=== PATIENT | female | born 1995 | race Caucasian/White ===

== ENCOUNTER 2018-07-11 14:35 | Emergency (ER) | payer BC ==
[~2018-07-11] VITALS: Ht 160 cm; Wt 44.5 kg
[2018-07-11 14:42] VITALS: Ht 160 cm; Wt 44.5 kg
[2018-07-11] MEDS ORDERED: ELAVIL25 MG PO (14:44)
[2018-07-11 15:19] LABS: BASOPHILS 0.3 % (0-2); EOSINOPHILS 0.6 % (0-7); HEMATOCRIT 41.5 % (36.0-48.0); HEMOGLOBIN 13.9 g/dL (12-16); IMMATURE GRANULOCYTES 0.2 % (0-5); LYMPHOCYTES 12.3 % (15-50); MCH 29.1 pg (26.0-34.0); MCHC 33.5 g/dL (31.0-37.0); MCV 86.8 fL (80.0-100.0); MEAN PLATELET VOLUME 10.5 fL (7.4-10.4); MONOCYTES 4.5 % (2-11); NEUTROPHILS 82.1 % (40-80); PLATELET COUNT 330 10x3/uL (130-400); RBC 4.78 10x6/uL (4.00-5.40); RDW 12.9 % (11.5-14.5); WBC 11.1 10x3/uL (4.8-10.8)
[2018-07-11 15:44] LABS: ALKALINE PHOSPHATASE 47 U/L (46-116); ALT (SGPT) 18 U/L (10-68); AMYLASE - SERUM 67 U/L (25-115); BILIRUBIN - TOTAL 0.48 mg/dL (0.2-1.3); CALC OSMOLALITY 285 mosm/kg (275-300); CALCIUM 8.8 mg/dL (8.5-10.1); CARBON DIOXIDE 23.8 mmol/L (21.0-32.0); CHLORIDE - SERUM 104 mmol/L (98-107); CREATININE - SERUM 0.9 mg/dL (0.6-1.3); GLUCOSE 130 mg/dL (74-106); LIPASE 135 U/L (73-393); POTASSIUM - SERUM 3.4 mmol/L (3.5-5.1); PROTEIN - SERUM 7.4 g/dL (6.4-8.2); SODIUM 143 mmol/L (136-145); UREA NITROGEN 9 mg/dL (7-18); eGFR NON AFRICAN AMERICAN 82 mL/min (90-120)
[2018-07-11 17:33] LABS: APPEARANCE CLEAR (CLEAR); BILIRUBIN NEGATIVE (NEGATIVE); COLOR YELLOW (YELLOW); GLUCOSE NEGATIVE (NEGATIVE); KETONE MODERATE mg/dL (NEGATIVE); NITRITE NEGATIVE (NEGATIVE); PROTEIN NEGATIVE (NEGATIVE); SPECIFIC GRAVITY 1.015 (1.005-1.020); UROBILINOGEN NORMAL (NORMAL)
[2018-07-11 17:34] LABS: BACTERIA FEW /hpf (NONE SEEN); EPITHELIAL CELLS OCC /hpf (0-5); WHITE CELLS - URINE OCC /hpf (0-5)
[2018-07-11 18:28] LABS: HCG URINE NEGATIVE (NEGATIVE)
[2018-07-11] MEDS ORDERED: ZOFRAN ODT4 MG/UDTAB PO (18:59)
[2018-07-11] MEDS ORDERED: BENTYL 20 MG TA20 MG PO (18:59)
[2018-07-11 19:17] VITALS: BP 102/63
== END 2018-07-11 19:17 | disposition home or self-care (01) ==
LOC: D.ER 14:35
PROVIDERS: Emergency Medicine
DX: A08.4 Viral intestinal infection, unspecified (principal); E86.0 Dehydration; R10.9 Unspecified abdominal pain